=== PATIENT | male | born 1965 | race Caucasian/White ===

== ENCOUNTER → 2018-05-12 16:20 | Outpatient (CLI) | payer BC, SELFPAY ==
--- NOTE | 2018-05-12 16:20 | LES_PTH ---
PATIENT: HAL SCOTT LOC: [facility] U#:[id number] AGE/SX: 59/M ROOM: RE05/12/[address]: Dr. Negrito Butcher MD : 1965 BED: DIS: SPEC #: [id number] RECD: 05/13/18 10:36 STATUS: KLAUS SUDARSHAN #: [id number] BELA: 05/12/18 16:[address]: Negrito Butcher DEPT: SURGICAL PATHOLOGY RECD BY: Hipolito Pretty Tissues: A - Skin of eyelid, NOS B - Skin of eyelid, NOS Procedures: Surgery Specimen Level IV HEADER OPERATION: Lesion removal right upper eyelid; lesion removal left upper eyelid PRE-OP DIAGNOSIS: Increasing in size with vascularity TISSUE SUBMITTED: A ? Right upper eyelid, B ? Left upper eyelid MICROSCOPIC DIAGNOSIS A. Right upper eyelid lesion, biopsy: Benign ductal cyst (cyst of Moll?s gland). B. Left upper eyelid lesion, biopsy: Benign ductal cyst (cyst of Moll?s gland). GUILLERMINA:yi 05/14/18 MICROSCOPIC DESCRIPTION Slides are reviewed. GROSS DESCRIPTION A - Received in fixative is one container labeled with the patient's name and designated right upper eyelid. The specimen consists of a piece of olivera-brownish to black skin measuring 0.3 x 0.2 x 0.1 cm. The specimen is totally submitted in one cassette. B - Received in fixative is one container labeled with the patient's name and designated left upper eyelid. The specimen consists of a piece of olivera-white skin measuring 1 x 0.7 x 0.7 cm. The specimen is inked, bisected and reveals a cyst filled with clear fluid. The entire specimen is submitted in one cassette. / GUILLERMINA:yi 05/13/18 TC:5 [facility]: [id number] x2
== END ==
PROVIDERS: Visit Provider Ophthalmology
DX: H02.9 Unspecified disorder of eyelid (principal)
CPT/HCPCS: 88305

== ENCOUNTER 2020-10-30 21:24 | Emergency (ER) | payer BC, SELFPAY ==
[2020-10-30 21:25] VITALS: BP 161/87; PULSE 82; RESP 15; TEMP 35.4; O2SAT 98; BMI 32.8
--- NOTE | 2020-10-30 21:47 | CT_ITS ---
STUDY: CT ABDOMEN AND PELVIS WITH CONTRAST REASON FOR EXAM: Male, 54 years old. MID EPIGASTRIC PAIN SINCE 5PM; INCREASED WBC RADIATION DOSAGE (If Supplied By Facility): CTDIvol = ( 16.81 ) mGy, DLP = ( 1305.16 ) mGycm TECHNIQUE: Transaxial images were obtained from the dome of the diaphragm to the symphysis pubis without oral contrast. IV 100mL Isovue-370 was administered. Sagittal and coronal images were reconstructed. Individualized dose optimization techniques were used for this CT. COMPARISON: None. FINDINGS: The visualized lung bases are unremarkable. The visualized portions of the heart are within normal limits. Normal liver. There is a solitary gallstone. Normal spleen. Normal pancreas. Normal bilateral adrenal glands. Normal right kidney. Normal left kidney. Evaluation of the GI tract is limited by absence of oral contrast. Cannot exclude stomach wall thickening. No dilated loops of bowel or evidence for obstruction. Cannot exclude segmental thickening of the lutz of the small or large bowel. Cannot exclude enteritis or colitis. Moderate diffuse fecal retention. Diverticulosis without definite diverticulitis. Appendix within normal limits. Normal abdominal aorta. Normal inferior vena cava. Normal retroperitoneum. Normal urinary bladder. Normal abdominal wall. There are diffuse degenerative changes of the visualized lumbar spine. CT/Abdomen/Pelvis W IV Cont ONLY IMPRESSION: Cholelithiasis. No other definite abnormalities. Electronically Signed: Anupam Patel MD at 23:08 EST , Service support ,
--- NOTE | 2020-10-30 21:51 | ED.VIS.GEN ---
History of Present Illness Chief Complaint: Abd Pain Informant: Patient Onset: Today Context: Gradual Onset Timing: Intermittent Current Severity: Mild Maximum Severity: Moderate Narrative: Patient is a 54-year-old male history of qag-[id number]-[id number] diabetes presents to the emergency department abdominal pain. Patient states that about 5:00 tonight, he had a dull ache in his midepigastric area towards his umbilicus. He states that he felt nauseated with it. He described it more as a cramping pain. He states shortly after, he got some chest pain with his nausea. He states it was like a 2 out of 10. He is never really had symptoms like this before. He denies any history of abdominal surgery. He denies fevers or chills. He states he is otherwise been in his normal state of health. He states that since his pain started, it has improved and he is feeling better. Prior similar symptoms: No Recent Illness/Hospitalization: No Past Medical History - Allergies and Home Meds Allergies/Adverse Reactions: Allergies a diabetic med; unsure of name Allergy (Uncoded 10/30/20 21:47) Rash Primary Care Physician: Kilo Cuellar DO [Primary Care Provider] - Prior records reviewed: Yes Past Medical History: - - Diabetes Surgical History: noncontributory Smoking Status: Never smoker Review of Systems General: Denies: Chills, Fever, Sweats Eyes: Denies: Visual changes - bilaterally, Diplopia ENT: Denies: Rhinorrhea, Sore throat Cardiovascular: Reports: Chest pain. Denies: Palpitations Respiratory: Denies: Dyspnea, Cough, Dyspnea on exertion Gastrointestinal: Reports: Abdominal pain, Nausea. Denies: Vomiting, Diarrhea, Melena, Hematochezia Genitourinary: Denies: Dysuria, Hematuria, Frequency Musculoskeletal: Denies: Back pain, Extremity Pain Skin: Denies: Rash, Wounds Neurological: Denies: Headache, Weakness, Numbness Physical Exam Vital Signs/Narrative: Vital Signs Temp Pulse Resp BP Pulse Ox 10/30/20 21:25 95.8 F L 82 15 161/87 H 98 Inital Vital Signs reviewed: Yes General: Well nourished, Well developed, No Acute Distress Head: Normocephalic, Atraumatic Eyes: Perrl, EOMI ENT: Moist mucous membranes, No rhinorrhea Neck: Supple, Nontender Cardiovascular: Regular rate, Regular rhythm, No murmurs Respiratory: No distress, CTA bilaterally, Chest nontender Abdomen: Soft, Nontender, Nondistended, Normal bowel sounds Back: Nontender, Normal Inspection Extremities: Nontender, No edema Skin: Normal color, No rash Neurological: Alert, Oriented x3, Cranial nerves II-XII grossly intact, Normal Strength, Normal Sensation Psychological: Normal affect, Normal Mood Diagnostic/Tx/Re-eval Clinical Impression(s) from Imaging Studies Abdomen/Pelvis CT 10/30/20 21:47 IMPRESSION: Cholelithiasis. No other definite abnormalities. Electronically Signed: Anupam Patel MD at 23:08 EST , Service support , Abnormal Lab Results 10/30/20 10/30/20 21:45 21:45 WBC 12.0 H RBC 5.41 Hgb 15.4 Hct 46.6 MCV 86.1 MCH 28.5 MCHC 33.0 RDW Std Deviation 41.6 RDW Coeff of Vic 13.2 Plt Count 247 MPV 9.5 Immature Gran % (Auto) 0.700 Neut % (Auto) 63.0 Lymph % (Auto) 12.[address] [place] % (Auto) 7.7 Eos % (Auto) 15.7 H Baso % (Auto) 0.3 Absolute Neuts (auto) 7.5 Absolute Lymphs (auto) 1.50 Nucleated RBC % 0 Differential Comment SCANNED Sodium 136 Potassium 4.3 Chloride 103 Carbon Dioxide 27.0 Anion Gap 6 BUN 23 H Creatinine 0.96 Estim Creat Clear Calc 93.69 Est GFR (MDRD) Af Amer 104 Est GFR (MDRD) Non-Af 86 BUN/Creatinine Ratio 23.9 H Glucose 162 H Calcium 9.3 Total Bilirubin 0.50 AST 28 ALT 44 Alkaline Phosphatase 89 Troponin I < 0.015 Total Protein 8.2 Albumin 4.1 Globulin 4.1 Albumin/Globulin Ratio 1.0 Lipase 271 - Rhythm Strip Rhythm Strip: Sinus Rhythm Rate: 80 Ectopy: None - EKG Initial EKG Interpretation: Sinus Rhythm, No Acute Injury Pattern Prior: No Prior - Medical Decision Making Patient presents with midepigastric pain slightly into his right upper quadrant. He has no definitive Eli sign. IV was established. Initially, he did not want analgesics. Metabolic work-up was pursued. EKG was obtained. Was sinus rhythm without acute ischemia. Cardiac enzymes were negative. Patient underwent CT imaging. There is evidence of gallstones, but no definitive evidence of cholecystitis. His liver functions are normal. His lipase is normal. He did have mild pain which was treated. Clinically, I do feel that his symptoms are likely secondary to biliary colic. I am going to treat him with Pepcid and analgesics. I also have him follow-up with surgery this week or return with any worsening symptoms. He is comfortable with this plan of care. Impression 1. Biliary colic ED Disposition - Plan for ED Patient: Instructions: ED Gallstones with Biliary Colic Prescriptions: Hydrocodone Bitart/Apap 5-325 [[place] 5MG-325MG] 1 tab PO Q6H PRN PRN 3 Days #10 tab PRN Reason: Pain Prescription Printed Famotidine [Pepcid] 20 mg PO BID #28 tab Prescription Printed Ondansetron [Zofran Odt] 4 mg PO Q8H PRN PRN #10 tab PRN Reason: Nausea Prescription Printed Referrals: Carmen Tapia MD [STAFF PHYSICIAN] - 2 Days
[2020-10-30 21:56] LABS: Absolute Neutrophil Count 7.5 X10^3/uL (2.0-7.7); Basophil# 0.04 X10^3/uL; Basophil% 0.3 % (0-1); Eosinophil# 1.88 X10^3/uL; Eosinophils% 15.7 % (0-5); Hematocrit 46.6 % (40-54); Hemoglobin 15.4 g/dL (13.0-16.5); Lymphocyte % 12.6 % (19-41); Mean Corpuscular Hgb 28.5 pg (27.0-32.0); Mean Corpuscular Volume 86.1 fL (80-94); Mean Platelet Vol. 9.5 fl (6.2-12.0); Monocyte# 0.92 X10^3/uL; Monocyte% 7.7 % (0-10); NRBC Flagged by Analyzer 0 % (0-5); Neutrophil # 7.53 X10^3/uL (2.7-7.7); POSITIVE MORPHOLOGY YES; Platelet Count 247 K/mm3 (150-450); RBC Distribution Width CV 13.2 % (11.6-14.6); RBC Distribution Width SD 41.6 fl (35.1-43.9); Red Blood Count 5.41 M/mm3 (4.6-6.2)
[2020-10-30] MEDS: 0.9% Normal Saline 1,000 ML 1000 ML IV (21:59)
[2020-10-30] MEDS: Ondansetron 4 MG/2 ML Vial IV (21:59)
[2020-10-30 22:01] LABS: Differential Indicated SCAN CRITERIA MET
[2020-10-30 22:16] LABS: AST(SGOT) 28 U/L (15-37); Alanine Aminotransfer ALT/SGPT 44 U/L (16-61); Albumin, Serum 4.1 g/dL (3.2-5.0); Alkaline Phosphatase 89 U/L (45-117); Anion Gap 6 (5-15); BUN 23 mg/dL (7-18); BUN/Creat Ratio 23.9 RATIO (10-20); Calcium,Total 9.3 mg/dL (8.5-10.1); Chloride 103 mmol/L (98-107); Creatinine, Serum 0.96 mg/dL (0.70-1.30); EST Glomerular Filtration Rate 86 mL/min (>60); Est Glom Filt Rate - Afr Amer 104 mL/min (>60); Estimated Creatinine Clearance 93.69 ml/min; Globulin 4.1 g/dL (2.2-4.2); Glucose 162 mg/dL (74-106); Lipase 271 U/L (73-393); Potassium 4.3 mmol/L (3.5-5.1); Protein, Total 8.2 g/dL (6.4-8.2); Sodium Level 136 mmol/L (136-145)
[2020-10-30 22:28] LABS: Differential Comment SCANNED
--- NOTE | 2020-10-30 22:50 | EKG12_ITS ---
Test Reason : CHEST PAIN Blood Pressure : / mmHG Vent. Rate : 063 BPM Atrial Rate : 063 BPM P-R Int : 164 ms QRS Dur : 082 ms QT Int : 396 ms P-R-T Axes : 050 025 037 degrees QTc Int : 405 ms Normal sinus rhythm with sinus arrhythmia Normal ECG Confirmed by ARUNA PINZON, LIZETT ([id number]), clinical editor ISAAC MARTINEZ ([id number]) on 11/02/2020 6:58:11 AM Referred By: JAYLENE Confirmed By:LIZETT VALDOVINOS MD
[2020-10-30] MEDS: Morphine 4 MG/ML Syringe IV (23:20)
[2020-10-30 23:48] VITALS: BP 168/82; PULSE 68; RESP 20; O2SAT 98
== END 2020-10-30 23:49 | disposition home or self-care (01) ==
LOC: ED 22:19
PROVIDERS: Emergency Provider Emergency Medicine; PCP Student in an Organized Health Care Education/Training Program
DX: K80.70 Calculus of gallbladder and bile duct without cholecystitis without obstruction (principal); E11.9 Type 2 diabetes mellitus without complications; Z79.84 Long term (current) use of oral hypoglycemic drugs
CPT/HCPCS: 74177; 80053; 83690; 84484; 85025; 93005; 96361; 96374; 96375; 99283; J7030; A4216; J2405

== ENCOUNTER → 2024-07-03 | Outpatient (CLI) | payer BC, SELFPAY ==
--- NOTE | 2024-07-03 | HIP_PTH ---
PATIENT: HAL SCOTT LOC: [facility] U#:[id number] AGE/SX: 58/M ROOM: RE07/03/[address]: Dr. Jose Raul Cadena MD : 1965 BED: DIS: 07/03/2024 SPEC #: [id number] RECD: 07/03/24 15:15 STATUS: KLAUS HEATON #: [id number] BELA: 07/03/24 00:[address]: Jose Raul Cadena DEPT: SURGICAL PATHOLOGY RECD BY: Brad Warner ENTERED: 07/06/24 11:54 SP TYPE: TOTAL HIP OTHR DR: Dr. Kilo Cuellar, DO Tissues: Hip, NOS Procedures: Decalcification bone/plaque Surgery Specimen Level IV HEADER OPERATION: Right total hip arthroplasty PRE-OP DIAGNOSIS: Right hip grade 4 primary osteoarthritis TISSUE SUBMITTED: Right hip bone and soft tissue MICROSCOPIC DIAGNOSIS Right hip bone and soft tissue, total hip replacement/resection: Femoral head with severe degenerative osteoarthritic changes. GUILLERMINA: 07/09/2024 MICROSCOPIC DESCRIPTION Slides are reviewed. GROSS DESCRIPTION Received is one container labeled with the patient's name and designated bone and soft tissue right hip. The specimen consists of a olivera femoral head with portion of femoral neck. The femoral head measures 5.0 x 5.0 x 4.5 cm and the femoral neck measures 1.5 cm in length. The articular surface displays prominent osteophyte formation, eburnation and bone erosion. No soft tissue is identified. Civil Project Engineer sections are submitted in one cassette after decalcification. 07/06/2024 TC:5 CPT: 18458, 00478
== END | disposition home or self-care (01) ==
LOC: LABSPEC 16:19
PROVIDERS: PCP Student in an Organized Health Care Education/Training Program; Referring Provider Orthopaedic Surgery; Visit Provider Orthopaedic Surgery
DX: M16.11 Unilateral primary osteoarthritis, right hip (principal)
CPT/HCPCS: 88305; 88311